=== PATIENT | female | born 1960 | race Asian ===

== ENCOUNTER 2018-01-21 11:32 | Inpatient (IN) | payer OTHER ==
[~2018-01-21] VITALS: Ht 157.5 cm; Wt 53.5 kg
[2018-01-21] MEDS ORDERED: SODIUM CHLORIDE 0.9% 1,000 ML IV ONE (11:43)
[2018-01-21 12:23] LABS: BASOPHILS % 0.3 % (0.0-2.0); EOSINOPHILS % 0.1 % (0.0-5.0); HEMATOCRIT. 41.2 % (36.0-48.0); HEMOGLOBIN. 14.4 g/dL (12.0-16.0); MEAN CORPUSCULAR HEMOGLOBIN 28.9 pg (28.0-32.0); MEAN CORPUSCULAR VOLUME 82.7 fL (81.0-99.0); MEAN PLATELET VOLUME 8.9 fl (7.4-10.4); MONOCYTES % 4.8 % (2.0-8.0); NEUTROPHILS % 83.8 % (40.0-76.0); PLATELET 230 x1000/uL (130-400); RED BLOOD CELL COUNT 4.99 mill/uL (4.2-5.4); RED CELL DISTRIBUTION WIDTH 12.9 % (11.6-14.6)
[2018-01-21 12:25] LABS: CHLORIDE 100 mEq/L (98-107)
[2018-01-21 12:26] LABS: PROTHROMBIN TIME 10.6 sec (9.4-11.6)
[2018-01-21 13:06] LABS: CLARITY URINE CLEAR (CLEAR); COLOR URINE YELLOW (YELLOW); KETONES URINE NEGATIVE (NEGATIVE); LEUKOCYTE ESTERASE URINE NEGATIVE (NEGATIVE); NITRITE URINE NEGATIVE (NEGATIVE); OCCULT BLOOD URINE NEGATIVE (NEGATIVE); PH URINE 7.5 (4.5-8.0); PROTEIN URINE NEGATIVE (NEGATIVE); SPECIFIC GRAVITY URINE 1.009 (1.005-1.030); UROBILINOGEN URINE 0.2 E.U./dL (0.2-1.0)
[2018-01-21 13:28] LABS: HCG SCREEN NEGATIVE
[2018-01-21] MEDS ORDERED: ONDANSETRON HCL 4MG/2ML VIAL IV PRN ×3 (14:15→17:30)
[2018-01-21] MEDS ORDERED: MORPHINE SULFATE 4 MG/ML CPJ (NOT FOR IM USE) IV PRN ×3 (14:15→16:30)
[2018-01-21] MEDS ORDERED: BUPIVACAINE HCL 0.5% (5MG/ML) 50ML ONE (14:30)
[2018-01-21] MEDS ORDERED: SKIN ADHESIVE 0.7 GM EA TOP ONE ×2 (14:30→15:23)
[2018-01-21] MEDS ORDERED: MORPHINE SULFATE 4 MG/ML CPJ (NOT FOR IM USE) IV ONE (15:00)
[2018-01-21] MEDS ORDERED: DEXT 5%/0.45% NACL 500ML 500 ML IV ONE (15:30)
[2018-01-21] MEDS ORDERED: NA PHOS,M-B/NA PHOS,DI-BA ENEMA 118ML PR PRN (15:45)
[2018-01-21] MEDS ORDERED: LORAZEPAM 0.5MG TABLET PO PRN (15:45)
[2018-01-21] MEDS ORDERED: DIPHENHYDRAMINE 50MG/ML VIAL IV PRN (15:45)
[2018-01-21] MEDS ORDERED: DOCUSATE SODIUM 100MG CAPSULE PO PRN (15:45)
[2018-01-21] MEDS ORDERED: HYDROCODONE/ACETAMINOPHEN 5/325MG TABLET PO PRN ×2 (15:45→16:30)
[2018-01-21] MEDS ORDERED: CLONIDINE 0.1MG TABLET PO PRN (15:45)
[2018-01-21] MEDS ORDERED: GUAIFENESIN 200MG/10ML SUGAR FREE UDC PO PRN (15:45)
[2018-01-21] MEDS ORDERED: ACETAMINOPHEN 325MG TABLET PO PRN ×2 (15:45→16:30)
[2018-01-21] MEDS ORDERED: IPRATROPIUM/ALBUTEROL 0.5-3(2.5)MG/3ML NEB INH PRN (15:45)
[2018-01-21] MEDS ORDERED: ACETAMINOPHEN 650MG/20.3ML UDC GT PRN (15:45)
[2018-01-21] MEDS ORDERED: HYDROCODONE/ACETAMINOPHEN 10/325MG TABLET PO PRN (15:45)
[2018-01-21] MEDS ORDERED: MAGNESIUM/ALUMINUM HYDROXIDE/SIMETHICONE 30ML UDC PO PRN (15:45)
[2018-01-21] MEDS ORDERED: ACETAMINOPHEN 650MG SUPP PR PRN (15:45)
[2018-01-21] MEDS ORDERED: MIDAZOLAM HCL 2 MG/2 ML VIAL ONE (16:07)
[2018-01-21] MEDS ORDERED: PROPOFOL 200MG/20ML VIAL IV ONE (16:07)
[2018-01-21] MEDS ORDERED: FENTANYL CITRATE/PF 50MCG/ML 2ML VIAL ONE (16:07)
[2018-01-21] MEDS ORDERED: ROCURONIUM BROMIDE 10MG/ML VIAL 5ML IV ONE (16:08)
[2018-01-21] MEDS ORDERED: SUCCINYLCHOLINE CHLORIDE 200MG/10ML VIAL IV ONE ×2 (16:08→17:05)
[2018-01-21] MEDS ORDERED: LIDOCAINE HCL/PF 1% 10 MG/ML 30ML VIAL ONE ×2 (16:08→17:05)
[2018-01-21] MEDS ORDERED: ONDANSETRON HCL 4MG TABLET PO PRN (16:15)
[2018-01-21] MEDS ORDERED: LEVOFLOXACIN 500MG PREMIX 100 ML IV ONE (16:43)
[2018-01-21] MEDS ORDERED: GLYCOPYRROLATE 0.2 MG/ML 2ML VIAL ONE (17:01)
[2018-01-21] MEDS ORDERED: NEOSTIGMINE METHYLSULFATE 1MG/ML 10 ML VIAL ONE (17:01)
[2018-01-21] MEDS ORDERED: ONDANSETRON HCL 4MG/2ML VIAL ONE (17:05)
[2018-01-21] MEDS ORDERED: FENTANYL CITRATE/PF 50MCG/ML 2ML VIAL IV PRN (17:30)
[2018-01-21] MEDS ORDERED: CEFTRIAXONE 1 G PREMIX 50 ML IV SCH (18:00)
[2018-01-21 20:00] VITALS: BP 92/52
[2018-01-21 20:35] VITALS: BP 92/52
[2018-01-21] MEDS: DEXT 5%/0.45% NACL KCL 20MEQ/L 1,000 ML IV SCH (21:41)
[2018-01-21] MEDS: METRONIDAZOLE 500 MG PREMIX 100 ML IV SCH (21:42)
[2018-01-22] VITALS: BP 95/51
[2018-01-22] MEDS: HYDROCODONE/ACETAMINOPHEN 5/325MG TABLET PO PRN ×2 (02:12→06:48)
[2018-01-22] MEDS: SODIUM CHLORIDE 0.9% INJ 3ML FLUSH IVF SCH ×2 (02:14→06:07)
[2018-01-22 04:00] VITALS: BP 106/68
[2018-01-22] MEDS: METRONIDAZOLE 500 MG PREMIX 100 ML IV SCH (06:28)
[2018-01-22] MEDS: DEXT 5%/0.45% NACL KCL 20MEQ/L 1,000 ML IV SCH (06:37)
[2018-01-22 07:05] LABS: BASOPHILS % 0.2 % (0.0-2.0); HEMATOCRIT. 34.9 % (36.0-48.0); HEMOGLOBIN. 12.1 g/dL (12.0-16.0); LYMPHOCYTES % 16.6 % (20.0-50.0); MEAN CORPUSCULAR HEMOGLOBIN 28.6 pg (28.0-32.0); MEAN CORPUSCULAR VOLUME 82.4 fL (81.0-99.0); MONOCYTES % 6.3 % (2.0-8.0); NEUTROPHILS % 76.9 % (40.0-76.0); PLATELET 187 x1000/uL (130-400); RED BLOOD CELL COUNT 4.24 mill/uL (4.2-5.4)
[2018-01-22 07:07] LABS: CHLORIDE 109 mEq/L (98-107)
[2018-01-22 07:18] LABS: CREATINE KINASE 38 IU/L (26-192); LDL CHOLESTEROL 66 mg/dL (5-100); T4 FREE 1.23 ng/dL (0.76-1.46)
[2018-01-22 07:19] LABS: HDL CHOLESTEROL 56 mg/dL (40-59)
[2018-01-22 08:00] VITALS: BP 108/62
[2018-01-22 10:52] VITALS: BP 108/62
[2018-01-22 11:41] LABS: *BARBITURATES SCREEN URINE NEGATIVE (NEGATIVE); *BENZODIAZEPINES SCREEN URINE NEGATIVE (NEGATIVE)
[2018-01-22 11:42] LABS: *COCAINE SCREEN URINE NEGATIVE (NEGATIVE); CANNABINOID URINE SCREEN NEGATIVE (NEGATIVE); METHADONE URINE SCREEN NEGATIVE (NEGATIVE); OPIATES URINE SCREEN NEGATIVE (NEGATIVE)
[2018-01-22 11:43] LABS: *AMPHETAMINES SCREEN URINE NEGATIVE (NEGATIVE)
[2018-01-22 12:00] VITALS: BP 109/70
[2018-01-22] MEDS ORDERED: POTASSIUM CHLORIDE 20MEQ TABLET SR PO NR (12:00)
[2018-01-22 12:09] LABS: PHENCYCLIDINE URINE SCREEN NEGATIVE (NEGATIVE)
[2018-01-22] MEDS ORDERED: DOCU-138 PO (12:35)
[2018-01-22] MEDS ORDERED: ONDA4TAB50 PO (12:35)
[2018-01-22] MEDS ORDERED: POLYETHYLENE GLYCOL 3350 (17GM) 1 DOSE PACK PO SCH (12:45)
[2018-01-22] MEDS ORDERED: ONDANSETRON HCL 4MG TABLET PO PRN (12:45)
== END 2018-01-22 12:35 | disposition home or self-care (01) | DRG 225 ==
LOC: ER 12:18 → 8WST 14:43 → ENRESERV 14:50 → 6EST 17:24
PROVIDERS: ADMIT Internal Medicine; ATTEND Internal Medicine
PROC: 0DTJ4ZZ Resection of Appendix, Percutaneous Endoscopic Approach (ICD-10-PCS; principal; 2018-01-21 16:00)
DX: K35.80 Unspecified acute appendicitis (principal); K85.90 Acute pancreatitis without necrosis or infection, unspecified; D72.9 Disorder of white blood cells, unspecified; N85.2 Hypertrophy of uterus
CPT/HCPCS: 36415; 71045; 74176; 80053; 80061; 80305; 81003; 82550; 83036; 83605; 83690; 84439; 84443; 84481; 84484; 84703; 85025; 85610; 87040; 87086; 88304; 96361; 96374; 96375; 99285; J0330; J0696; J1956; J2250; J2270; J2405; J2704; J2710; J3010; J3490; J7030